=== PATIENT | male | born 1950 | race Hispanic/Latino ===

== ENCOUNTER 2017-12-22 16:06 | Emergency (ER) | payer OTHER ==
[2017-12-22 17:03] VITALS: BP 162/77; PULSE 80; RESP 16; TEMP 99; O2SAT 97
--- NOTE | 2017-12-22 17:37 | ED PDOC ---
Lower Extremity Pain/Injury Time Seen by Provider: 12/22/17 17:12 Chief Complaint (Nursing): Lower Extremity Problem/Injury Chief Complaint (Provider): Lower Extremity Problem/Injury History Per: Patient History/Exam Limitations: no limitations Onset/Duration Of Symptoms: Days (x2) Current Symptoms Are (Timing): Still Present Additional Complaint(s): 67 year old male arrives to ED for an evaluation of (right > left) knee pain status post work injury around 20:00 last night. Patient reports he was struck by a forklift from behind causing him to fall forward on both knees. Patient was able to ambulate afterwards but reports increasing pain today. He further reports taking Motrin prior to arrival for relief. PMD: none provided Past Medical History Reviewed: Historical Data, Nursing Documentation, Vital Signs Vital Signs: Last Vital Signs Temp 99.0 F 12/22/17 16:59 Pulse 80 12/22/17 16:59 Resp 16 12/22/17 16:59 BP 162/77 H 12/22/17 16:59 Pulse Ox 97 12/22/17 16:59 - Family History Family History: States: Unknown Family Hx - Allergies Allergies/Adverse Reactions: Allergies Allergy/AdvReac Type Severity Reaction Status Date / Time No Known Allergies Allergy Verified 12/22/17 16:59 Review of Systems ROS Statement: Except As Marked, All Systems Reviewed And Found Negative Musculoskeletal: Positive for: Leg Pain (bilateral knees: R > L) Physical Exam - Reviewed Nursing Documentation Reviewed: Yes Vital Signs Reviewed: Yes - Physical Exam Appears: Positive for: No Acute Distress, Uncomfortable Extremity: Positive for: Normal ROM (upper/lower/bilateral sides of hips), Tenderness (right anterior knee), Swelling (right anterior knee). Negative for: Deformity, Other (bony tenderness) Neurologic/Psych: Positive for: Alert (x3), Oriented. Negative for: Motor/Sensory Deficits - ECG O2 Sat by Pulse Oximetry: 97 (RA) Pulse Ox Interpretation: Normal Medical Decision Making Medical Decision Making: Time: 1734 Initial Plan: * XR right knee ---- ---- ScribeAttestation: Documented byShaye Hanson, acting as a scribe for Maritza Alcazar PA-C. Provider ScribeAttestation: All medical record entries made by the Scribe were at my direction and personally dictated by me. I have reviewed the chart and agree that the record accurately reflects my personal performance of the history, physical exam, medical decision making, and the department course for this patient. I have also personally directed, reviewed, and agree with the discharge instructions and disposition. Disposition - Clinical Impression Clinical Impression: Knee injury - Disposition Disposition: Routine/Home Disposition Time: 20:00 Condition: STABLE Additional Instructions: your orthopedist in [facility] Instructions: Knee Pain (DC) Forms: [facility] ([place]), [facility] ED School/Work Excuse
--- NOTE | 2017-12-23 10:09 | RAD ---
Date of service: 12/22/2017 PROCEDURE: Right Knee Radiographs. HISTORY: trauma COMPARISON: None. FINDINGS: BONES: There is evidence of irregularity of the lateral femoral condyles which may suggest small fracture or small osteochondral defect. Correlation with symptoms in this region would be suggested. There may also be some linear density within the right lateral tibial plateau region without tibial plateau depression. Moderate knee joint effusion is noted. Medial tibial plateau is intact. Patella is intact and in normal location. Degenerative changes are identified in the knee. Proximal fibula is intact. Mild soft tissue swelling is noted. JOINTS: See above JOINT EFFUSION: Moderate OTHER FINDINGS: None. IMPRESSION: Small area of cortical irregularity in the lateral right femoral condyle. Small subtle fracture or focus of osteochondritis would be included in the differential diagnosis. Knee joint effusion. As there is no preliminary reading provided by the emergency room staff, this case will be placed into the PA review folder.
== END 2017-12-22 19:25 | disposition home or self-care (01) ==
LOC: H.ER 16:06
DX: S89.90XA Unspecified injury of unspecified lower leg, initial encounter (principal); V09.9XXA Pedestrian injured in unspecified transport accident, initial encounter; Y93.9 Activity, unspecified; Y99.0 Civilian activity done for income or pay

== ENCOUNTER 2017-12-24 16:12 | Emergency (ER) | payer OTHER ==
[2017-12-24 16:20] VITALS: BP 103/93; PULSE 83; RESP 20; TEMP 98.8; O2SAT 96
--- NOTE | 2017-12-24 16:35 | ED PDOC ---
Lower Extremity Pain/Injury Time Seen by Provider: 12/24/17 16:27 Chief Complaint (Nursing): Lower Extremity Problem/Injury Chief Complaint (Provider): Lower Extremity Problem/Injury History Per: Patient History/Exam Limitations: no limitations Additional Complaint(s): Rafael Braxton is a 67 year old patient with a past medical history of HTN, who presents to the emergency department for a follow up on his persistent right knee pain from a prior injury, onset x2 days ago. Patient was seen in ER x2 days ago and states he sustained the injury by being struck by a forklift from behind. Patient's prior X-rays revealed a questionable fracture. He further reports having no other medical complaints. PMD: Jadiel Ley - Knee Alleviating Factor(s): OTC Pain Medication Past Medical History Reviewed: Historical Data, Nursing Documentation, Vital Signs Vital Signs: Last Vital Signs Temp 98.8 F 12/24/17 16:18 Pulse 83 12/24/17 16:18 Resp 20 12/24/17 16:18 BP 103/93 H 12/24/17 16:18 Pulse Ox 96 12/24/17 16:18 - Medical History PMH: HTN - Surgical History Other surgeries: Right Knee Replacement Surgery - Family History Family History: States: Unknown Family Hx - Allergies Allergies/Adverse Reactions: Allergies Allergy/AdvReac Type Severity Reaction Status Date / Time No Known Allergies Allergy Verified 12/24/17 16:17 Review of Systems ROS Statement: Except As Marked, All Systems Reviewed And Found Negative Musculoskeletal: Positive for: Other (Right knee pain) Physical Exam - Reviewed Nursing Documentation Reviewed: Yes Vital Signs Reviewed: Yes - Physical Exam Appears: Positive for: Well Head Exam: Positive for: ATRAUMATIC, NORMOCEPHALIC Skin: Positive for: Normal Color, Warm, Dry Eye Exam: Positive for: Normal appearance, EOMI, PERRL ENT: Positive for: Normal ENT Inspection Neck: Positive for: Normal, Painless ROM, Supple Cardiovascular/Chest: Positive for: Regular Rate, Rhythm Respiratory: Positive for: Normal Breath Sounds. Negative for: Respiratory Distress Gastrointestinal/Abdominal: Positive for: Normal Exam, Bowel Sounds, Soft. Negative for: Tenderness Back: Positive for: Normal Inspection. Negative for: L CVA Tenderness, R CVA Tenderness, Vertebral Tenderness Extremity: Negative for: Normal ROM ((+) Limited ROM), Swelling (right knee ) Neurologic/Psych: Positive for: Alert, Oriented (x3) - ECG O2 Sat by Pulse Oximetry: 96 (RA) Pulse Ox Interpretation: Normal - Radiology X-Ray: Viewed By Me (Reviewed prior ED X-rays aswell ) - Physician Consult Information Time Consulting Physican Contacted: 17:47 Physician Contacted: Dr. Andrews Medical Decision Making Medical Decision Making: Time: 16:22 Initial Plan: --EXT lower w/o contrast --knee 3 views LT Patient requests X-ray of right knee since he he had right knee replacement surgery and wants to be sure that there is no injury from the accident. Time: 10:07 on 12/22/17 X-Ray FINDINGS: BONES: There is evidence of irregularity of the lateral femoral condyles which may suggest small fracture or small osteochondral defect. Correlation with symptoms in this region would be suggested. There may also be some linear density within the right lateral tibial plateau region without tibial plateau depression. Moderate knee joint effusion is noted. Medial tibial plateau is intact. Patella is intact and in normal location. Degenerative changes are identified in the knee. Proximal fibula is intact. Mild soft tissue swelling is noted. JOINTS: See above JOINT EFFUSION: Moderate OTHER FINDINGS: None. IMPRESSION: Small area of cortical irregularity in the lateral right femoral condyle. Small subtle fracture or focus of osteochondritis would be included in the differential diagnosis. Knee joint effusion. As there is no preliminary reading provided by the emergency room staff, this case will be placed into the PA review folder. Time:17:17 Knee X-ray FINDINGS: BONES: Three views of the left knee was performed for left knee pain. No fracture is seen. There is left knee replacement in anatomic position. Patella appears in normal location. Minimal joint fluid is suspected. Proximal fibula is intact. JOINTS: Joint replacement in anatomic position. JOINT EFFUSION: Small joint effusion. OTHER FINDINGS: None. IMPRESSION: Status post left knee replacement which appears in anatomic position. No definite plain film evidence of loosening or hardware failure. Time: 17:[address] FINDINGS: There is evidence of a small area of vertical cortical irregularity involving the posterior aspect of the lateral femoral condyle suggestive of a small area of impaction and/or a un stable focal osteochondral fragment. Correlation with symptoms would be suggested. This Herzog spines with the prior x-ray examination. No appreciable tibial plateau depression is seen. Medial femoral condyle is intact. Moderate tricompartmental degenerative changes are noted. Small joint effusion is noted. No lytic process is seen. Mild soft tissue swelling is seen elsewhere surrounding the knee. IMPRESSION: Small area vertical lucency in the posterior aspect of the lateral femoral condyle representing either small impaction fracture and/or small unstable osteochondral fragment. Correlation with symptoms is suggested. No other fractures seen. Small joint effusion. Time: 17:[address] Andrews information assurance specialist for Dr. Ramirez, who recommends that if patient is able to bear weight then he can continue to do so. Patient was instructed to follow up with outpatient clinic and was given immobilizer but declined crutches. Scribe Attestation: Documented by Marlon Morataya, acting as a scribe for Rusty Holloway PA-C Provider Scribe Attestation: All medical record entries made by the Scribe were at my direction and personally dictated by me. I have reviewed the chart and agree that the record accurately reflects my personal performance of the history, physical exam, medical decision making, and the department course for this patient. I have also personally directed, reviewed, and agree with the discharge instructions and disposition. Disposition - Clinical Impression Clinical Impression: Fracture of femoral condyle, Arthritis - Patient ED Disposition Is Patient to be Admitted: No - Disposition Disposition Time: 18:01 Condition: FAIR Instructions: Osteoarthritis (DC), Femur Fracture (DC) Forms: [facility] ED School/Work Excuse
--- NOTE | 2017-12-24 17:19 | RAD ---
Date of service: 12/24/2017 PROCEDURE: Left Knee Radiographs. HISTORY: Pain. COMPARISON: None. FINDINGS: BONES: Three views of the left knee was performed for left knee pain. No fracture is seen. There is left knee replacement in anatomic position. Patella appears in normal location. Minimal joint fluid is suspected. Proximal fibula is intact. JOINTS: Joint replacement in anatomic position. JOINT EFFUSION: Small joint effusion. OTHER FINDINGS: None. IMPRESSION: Status post left knee replacement which appears in anatomic position. No definite plain film evidence of loosening or hardware failure.
--- NOTE | 2017-12-24 17:33 | CT ---
Date of service: 12/24/2017 PROCEDURE: CT scan of the right knee without contrast HISTORY: r/o fx. noted by radiologist on xry of knee COMPARISON: X-ray performed 12/22/2017 TECHNIQUE: CT scan of the right knee was performed utilizing vol helical axial images. Coronal and sagittal reformatted images were obtained as well as 3D surface rendered imaging. FINDINGS: There is evidence of a small area of vertical cortical irregularity involving the posterior aspect of the lateral femoral condyle suggestive of a small area of impaction and/or a un stable focal osteochondral fragment. Correlation with symptoms would be suggested. This Herzog spines with the prior x-ray examination. No appreciable tibial plateau depression is seen. Medial femoral condyle is intact. Moderate tricompartmental degenerative changes are noted. Small joint effusion is noted. No lytic process is seen. Mild soft tissue swelling is seen elsewhere surrounding the knee. IMPRESSION: Small area vertical lucency in the posterior aspect of the lateral femoral condyle representing either small impaction fracture and/or small unstable osteochondral fragment. Correlation with symptoms is suggested. No other fractures seen. Small joint effusion.
== END 2017-12-24 18:01 | disposition home or self-care (01) ==
LOC: H.ER 16:12
DX: S72.412A Displaced unspecified condyle fracture of lower end of left femur, initial encounter for closed fracture (principal); V09.9XXA Pedestrian injured in unspecified transport accident, initial encounter; Y99.0 Civilian activity done for income or pay; I10 Essential (primary) hypertension; Z96.653 Presence of artificial knee joint, bilateral